=== PATIENT | male | born 1960 | race Caucasian/White ===

== ENCOUNTER 2025-08-19 09:57 | Inpatient (IN) | payer OTHER ==
[~2025-08-19] VITALS: Ht 180.3 cm; Wt 80.7 kg
[2025-08-19 10:11] VITALS: O2SAT 98
[2025-08-19] MEDS: KETOROLAC 15MG/ML VIAL IV ONE (10:43)
[2025-08-19] MEDS: SODIUM CHLORIDE 0.9% (SEPSIS BOLUS) IV ONE (10:44)
[2025-08-19] MEDS: PIPERACILLIN/TAZO 3.375G/50ML 50 ML IV ONE (10:44)
[2025-08-19 10:52] LABS: BASOPHILS % 1.2 % (0.0-2.0); EOSINOPHILS % 3.7 % (0.0-5.0); HEMATOCRIT. 41.0 % (42.0-52.0); HEMOGLOBIN. 13.6 g/dL (14.0-18.0); LYMPHOCYTES % 20.4 % (20.0-50.0); MEAN PLATELET VOLUME 9.1 fl (7.4-10.4); MONOCYTES % 10.5 % (2.0-8.0); NEUTROPHILS % 64.2 % (40.0-76.0); PLATELET 208 x1000/uL (130-400); RED BLOOD CELL COUNT 4.48 mill/uL (4.7-6.1); RED CELL DISTRIBUTION WIDTH 14.5 % (11.6-14.6)
[2025-08-19 11:02] LABS: INR 1.1
[2025-08-19 11:09] LABS: CREATININE 0.8 mg/dL (0.6-1.3); UREA NITROGEN BLOOD 17 mg/dL (9-23)
[2025-08-19 11:10] LABS: PROTEIN TOTAL 7.5 g/dL (6.0-8.3)
[2025-08-19 11:11] LABS: ASPARTATE AMINOTRANSFERASE 29 IU/L (<34); BILIRUBIN DIRECT 0.2 mg/dL (<=3.0); BILIRUBIN TOTAL 0.6 mg/dL (0.1-1.0)
[2025-08-19] MEDS: VANCOMYCIN 1G PREMIX 200 ML IV ONE (11:37)
[2025-08-19] MEDS ORDERED: MAGNESIUM/ALUMINUM HYDROXIDE/SIMETHICONE 30ML UDC PO PRN (11:45)
[2025-08-19] MEDS ORDERED: ONDANSETRON HCL 4MG/2ML INJ IV PRN (11:45)
[2025-08-19] MEDS ORDERED: ACETAMINOPHEN 325MG TABLET PO PRN (11:45)
[2025-08-19] MEDS ORDERED: CLONIDINE 0.1MG TABLET PO PRN (11:45)
[2025-08-19] MEDS: ENOXAPARIN 40MG/0.4ML SYR SUBCUT SCH (12:36)
[2025-08-19] MEDS ORDERED: IOHEXOL-350 100 ML BOTTLE ONE (15:15)
[2025-08-19] MEDS ORDERED: IOHEXOL-350 50 ML BOTTLE ONE (15:15)
[2025-08-19 16:00] VITALS: BP 118/55; PULSE 64; RESP 18; TEMP 36.3068
[2025-08-19] MEDS: PIPERACILLIN/TAZO 3.375G/50ML 50 ML IV SCH (16:00)
[2025-08-19 20:00] VITALS: BP 132/62; PULSE 66; RESP 20; TEMP 36.6; O2SAT 98
[2025-08-19] MEDS: HYDROCODONE/ACETAMINOPHEN 5/325MG TABLET PO PRN (20:48)
[2025-08-19] MEDS ORDERED: ZOLPIDEM TARTRATE 5MG TABLET PO PRN (21:00)
[2025-08-19] MEDS: VANCOMYCIN 1.25GM/250ML 250 ML IV SCH (21:00)
[2025-08-19] MEDS ORDERED: DEXTROSE 50% WATER 50ML SYRINGE IV PRN (23:30)
[2025-08-20] VITALS: BP 133/65; PULSE 74; RESP 20; TEMP 36.5; O2SAT 98
[2025-08-20 04:00] VITALS: BP 120/54; PULSE 61; RESP 20; TEMP 36.8; O2SAT 99
[2025-08-20 04:28] LABS: CLARITY URINE CLEAR (CLEAR); COLOR URINE YELLOW (YELLOW); GLUCOSE URINE 3+ (NEGATIVE); KETONES URINE NEGATIVE (NEGATIVE); LEUKOCYTE ESTERASE URINE NEGATIVE (NEGATIVE); NITRITE URINE NEGATIVE (NEGATIVE); OCCULT BLOOD URINE NEGATIVE (NEGATIVE); PH URINE 5.5 (4.5-8.0); PROTEIN URINE NEGATIVE (NEGATIVE); SPECIFIC GRAVITY URINE 1.051 (1.005-1.030); UROBILINOGEN URINE 1.0 E.U./dL (0.2-1.0)
[2025-08-20 04:46] LABS: BACTERIA URINE 1+; RBC URINE 0-2 /hpf (0-2); SQUAMOUS EPITHELIAL CELL URINE 1+ /lpf (RARE/1+); WBC URINE 0-2 /hpf (0-2)
[2025-08-20 04:58] LABS: *AMPHETAMINES SCREEN URINE NEGATIVE (NEGATIVE); *BARBITURATES SCREEN URINE NEGATIVE (NEGATIVE); *BENZODIAZEPINES SCREEN URINE NEGATIVE (NEGATIVE); *COCAINE SCREEN URINE NEGATIVE (NEGATIVE); CANNABINOID URINE SCREEN PRESUMPTIVE POSITIVE (NEGATIVE); ECSTASY MDMA SCREEN URINE NEGATIVE (NEGATIVE); METHADONE URINE SCREEN NEGATIVE (NEGATIVE); OPIATES URINE SCREEN PRESUMPTIVE POSITIVE (NEGATIVE); PHENCYCLIDINE URINE SCREEN NEGATIVE (NEGATIVE)
[2025-08-20] MEDS: MORPHINE SULFATE 2 MG/ML INJ (NOT FOR IM USE) IV PRN (06:54)
[2025-08-20] MEDS: BLOOD SUGAR DIAGNOSTIC STRIP TEST SCH (06:55)
[2025-08-20] MEDS: INSULIN LISPRO 100 UNITS/ML SUBCUT SCH (07:10)
[2025-08-20] MEDS: PANTOPRAZOLE SODIUM 40 MG/VIAL IV SCH (09:00)
[2025-08-20] MEDS ORDERED: LORAZEPAM 2MG/ML UD SYRINGE IV NR (12:00)
[2025-08-20] MEDS ORDERED: NALOXONE HCL 0.4MG/ML VIAL IV PRN (12:00)
[2025-08-20] MEDS: GABAPENTIN 300MG CAPSULE PO SCH (13:54)
[2025-08-20] MEDS: METFORMIN HCL 500MG TABLET PO SCH (17:10)
[2025-08-20] MEDS ORDERED: *PATIENT'S OWN MEDICATION STORAGE XX SCH (19:45)
[2025-08-20 20:00] VITALS: BP 133/77; PULSE 61; RESP 20; TEMP 36.1; O2SAT 95
[2025-08-20] MEDS: ATORVASTATIN CALCIUM 40MG TABLET PO SCH (20:26)
[2025-08-21] VITALS: BP 115/50; PULSE 61; RESP 18; TEMP 36.2; O2SAT 95
[2025-08-21] MEDS: SODIUM CHLORIDE 0.9% 1,000 ML IV SCH ×2 (00:19→21:26)
[2025-08-21 04:00] VITALS: BP 119/50; PULSE 56; RESP 17; TEMP 36.7; O2SAT 99
[2025-08-21] MEDS: CYANOCOBALAMIN 1000MCG TABLET PO SCH (06:18)
[2025-08-21 08:00] VITALS: BP 131/58; PULSE 54; RESP 19; TEMP 36.1; O2SAT 99
[2025-08-21 08:53] LABS: PLATELET 158 x1000/uL (130-400); RED BLOOD CELL COUNT 4.11 mill/uL (4.7-6.1); RED CELL DISTRIBUTION WIDTH 14.3 % (11.6-14.6)
[2025-08-21] MEDS: METOPROLOL SUCCINATE 50MG ER TABLET PO SCH (09:00)
[2025-08-21] MEDS: EMPAGLIFLOZIN 10MG TABLET PO SCH (09:00)
[2025-08-21] MEDS: ASPIRIN 81MG TABLET PO SCH (09:01)
[2025-08-21 09:08] LABS: CREATININE 0.6 mg/dL (0.6-1.3)
[2025-08-21 09:09] LABS: UREA NITROGEN BLOOD 8 mg/dL (9-23)
[2025-08-21] MEDS ORDERED: HEPARIN 1000 UNITS/ML 10ML ONE ×2 (11:53→12:46)
[2025-08-21] MEDS ORDERED: LIDOCAINE HCL/PF 2% 20MG/ML 5 ML/VIAL ONE (11:53)
[2025-08-21] MEDS ORDERED: MIDAZOLAM HCL 2 MG/2 ML VIAL ONE (11:53)
[2025-08-21] MEDS ORDERED: FENTANYL CITRATE/PF 50MCG/ML 2ML VIAL ONE (11:53)
[2025-08-21] MEDS ORDERED: IODIXANOL 320 MG/ML 150ML BOTTLE IV ONE (11:53)
[2025-08-21] MEDS ORDERED: LIDOCAINE HCL 1% 20ML VIAL ONE (11:54)
[2025-08-21] MEDS ORDERED: DIPHENHYDRAMINE 50MG/ML VIAL ONE (12:11)
[2025-08-21] MEDS ORDERED: TICAGRELOR 90 MG TABLET PO ONE (14:31)
[2025-08-21] MEDS ORDERED: SODIUM CHLORIDE 0.9% 1,000 ML IV SCH (15:00)
[2025-08-21 16:00] VITALS: BP 131/58; PULSE 65; RESP 17; TEMP 36.1; O2SAT 98
[2025-08-21 20:00] VITALS: BP 139/76; PULSE 76; RESP 18; TEMP 36.9; O2SAT 99
[2025-08-22] VITALS: BP 144/72; PULSE 66; RESP 16; TEMP 36.7; O2SAT 97
[2025-08-22 04:00] VITALS: BP 125/63; PULSE 65; RESP 20; TEMP 36.7; O2SAT 97
[2025-08-22 08:00] VITALS: BP 123/67; PULSE 62; RESP 18; TEMP 36.8; O2SAT 95
[2025-08-22 08:13] LABS: HEPATITIS C AB NON REACTIVE (Neg) (Negative)
[2025-08-22] MEDS ORDERED: TICAGRELOR 90 MG TABLET PO SCH (09:00)
[2025-08-22] MEDS: ASPIRIN 81MG TABLET PO SCH (09:20)
[2025-08-22] MEDS: RIVAROXABAN 2.5 MG TABLET PO SCH (09:28)
[2025-08-22 12:00] VITALS: BP 129/71; PULSE 65; RESP 18; TEMP 36.7; O2SAT 95
[2025-08-22] MEDS ORDERED: LIDOCAINE HCL 1% 10 MG/ML 10ML VIAL ONE (12:09)
[2025-08-22 20:00] VITALS: BP 115/67; PULSE 65; RESP 20; TEMP 37.1; O2SAT 96
[2025-08-23] VITALS: BP 128/77; PULSE 61; RESP 17; TEMP 37.1; O2SAT 97
[2025-08-23 04:00] VITALS: BP 101/38; PULSE 65; RESP 19; TEMP 36.9; O2SAT 96
[2025-08-23 08:00] VITALS: BP 132/60; PULSE 68; RESP 18; TEMP 36.8; O2SAT 98
[2025-08-23 12:00] VITALS: BP 103/52; PULSE 60; RESP 13; TEMP 36.4; O2SAT 96
[2025-08-23] MEDS ORDERED: ASPI-1160 PO (13:17)
[2025-08-23] MEDS ORDERED: RIVA2.5T PO (13:17)
[2025-08-23] MEDS ORDERED: EMPA10TA PO (13:17)
[2025-08-23] MEDS ORDERED: LIP40 PO (13:17)
[2025-08-23] MEDS ORDERED: METF-414 PO (13:17)
[2025-08-23] MEDS ORDERED: METO-385 PO (13:17)
[2025-08-23] MEDS ORDERED: GABA-1180 PO (13:17)
[2025-08-23 16:00] VITALS: BP 142/95; PULSE 85; RESP 18; TEMP 36.8; O2SAT 96
[2025-08-23 20:00] VITALS: BP 125/75; PULSE 78; RESP 19; TEMP 36.4; O2SAT 96
[2025-08-24] VITALS: BP 127/75; PULSE 80; RESP 18; O2SAT 96
[2025-08-24 04:00] VITALS: BP 127/82; PULSE 103; RESP 11; TEMP 36.5; O2SAT 99
[2025-08-24 08:00] VITALS: BP 125/70; PULSE 70; RESP 21; TEMP 36.8; O2SAT 96
[2025-08-24 12:00] VITALS: BP 120/62; PULSE 56; RESP 14; TEMP 36.7; O2SAT 97
[2025-08-24 16:00] VITALS: BP 105/51; PULSE 54; RESP 16; TEMP 36.8; O2SAT 98
[2025-08-24 20:00] VITALS: BP 140/58; PULSE 60; RESP 17; TEMP 36.3; O2SAT 99
[2025-08-24] MEDS: HYDROCODONE/ACETAMINOPHEN 5/325MG TABLET PO PRN (22:00)
[2025-08-25] VITALS: BP 133/65; PULSE 63; RESP 18; TEMP 36.4; O2SAT 97
[2025-08-25 04:00] VITALS: BP 133/65; PULSE 63; RESP 18; TEMP 36.4; O2SAT 97
[2025-08-25 08:00] VITALS: BP 129/62; PULSE 60; RESP 15; TEMP 36.5; O2SAT 98
[2025-08-25] MEDS: FAMOTIDINE 20MG/2ML VIAL IV SCH (08:45)
[2025-08-25 12:00] VITALS: BP 133/62; PULSE 54; RESP 16; TEMP 36.2; O2SAT 99
[2025-08-25 16:00] VITALS: BP 137/62; PULSE 58; RESP 18; TEMP 36.6; O2SAT 100
[2025-08-25] MEDS ORDERED: NALOXONE HCL 0.4MG/ML VIAL IV PRN ×2 (17:00)
[2025-08-25 18:11] VITALS: BP 137/62; PULSE 60; RESP 18; TEMP 98
== END 2025-08-25 20:00 | disposition home health service (06) | DRG 181 ==
LOC: ER 09:57 → 7EST 10:55 → EDBEDREQTM 11:01 → EDBEDREQ 11:01 → ENRESERV 12:21 → ER 12:35 → 3WST 08-21 14:58
PROVIDERS: ADMIT Internal Medicine; ATTEND Internal Medicine
PROC: 047L3Z1 Dilation of Left Femoral Artery using Drug-Coated Balloon, Percutaneous Approach (ICD-10-PCS; principal; 2025-08-21)
PROC: 047N3ZZ Dilation of Left Popliteal Artery, Percutaneous Approach (ICD-10-PCS; 2025-08-21)
PROC: 047U3ZZ Dilation of Left Peroneal Artery, Percutaneous Approach (ICD-10-PCS; 2025-08-21)
PROC: 047S3ZZ Dilation of Left Posterior Tibial Artery, Percutaneous Approach (ICD-10-PCS; 2025-08-21)
PROC: B410YZZ Fluoroscopy of Abdominal Aorta using Other Contrast (ICD-10-PCS; 2025-08-21)
PROC: B41GYZZ Fluoroscopy of Left Lower Extremity Arteries using Other Contrast (ICD-10-PCS; 2025-08-21)
PROC: 02HV33Z Insertion of Infusion Device into Superior Vena Cava, Percutaneous Approach (ICD-10-PCS; 2025-08-22)
PROC: B548ZZA Ultrasonography of Superior Vena Cava, Guidance (ICD-10-PCS; 2025-08-22)
DX: E11.52 Type 2 diabetes mellitus with diabetic peripheral angiopathy with gangrene (principal); I70.262 Atherosclerosis of native arteries of extremities with gangrene, left leg; L03.116 Cellulitis of left lower limb; M86.8X7 Other osteomyelitis, ankle and foot; Z79.01 Long term (current) use of anticoagulants; I10 Essential (primary) hypertension; E11.69 Type 2 diabetes mellitus with other specified complication; I25.10 Atherosclerotic heart disease of native coronary artery without angina pectoris; Z79.4 Long term (current) use of insulin; Z79.82 Long term (current) use of aspirin; Z79.899 Other long term (current) drug therapy
CPT/HCPCS: 36415; 36573; 37224; 37228; 37232; 71045; 73630; 73721; 75635; 75710; 80048; 80076; 80202; 80305; 81003; 82962; 83036; 83605; 84145; 85025; 85027; 85347; 85651; 86705; 86850; 86900; 87340; 93005; 93970; 99285; A4606; A4615; C1725; C1760; C1769; C1887; C1893; C1894; J1200; J1308; J1644; J1650; J1815; J1885; J2003; J2250; J2270; J2470; J2543; J3010; J3373; J3490; J7030; Q9967; C2623; J8499